=== PATIENT | female | born 1950 | race African-American/Black ===

== ENCOUNTER 2023-05-09 14:07 | Emergency (ER) | payer OTHER, MEDICARE ==
[2023-05-09 14:16] VITALS: BP 114/64; PULSE 110; RESP 18; TEMP 97.6; BMI 36.6
[2023-05-09 16:23] LABS: BASO % 0.9 % (0-2.0); EOS % 2.2 % (0-4.5); HEMATOCRIT 38.8 % (32.4-45.2); HEMOGLOBIN 12.8 GM/dL (10.7-15.3); LYMPH % 28.4 % (8-40); MCH 29.7 pg (25.7-33.7); MEAN PLT VOLUME 6.7 fl (7.5-11.1); MONO % 7.5 % (3.8-10.2); PLATELET COUNT 416 10^3/uL (134-434); RBC 4.31 M/mm3 (3.60-5.2); WHITE BLOOD COUNT 7.6 K/mm3 (4.0-10.0)
[2023-05-09 16:43] LABS: POTASSIUM 3.9 mmol/L (3.5-5.1)
[2023-05-09 16:48] LABS: CALCIUM 10.1 mg/dL (8.5-10.1)
[2023-05-09 16:49] LABS: ALBUMIN 4.1 g/dl (3.4-5.0); BLOOD UREA NITROGEN 15.9 mg/dL (7-18); MAGNESIUM 2.3 mg/dL (1.8-2.4)
[2023-05-09 16:52] LABS: CREATININE 1.1 mg/dL (0.55-1.3)
[2023-05-09 16:54] LABS: BILIRUBIN,TOTAL 0.6 mg/dL (0.2-1); TOT PROT 8.1 g/dl (6.4-8.2)
== END 2023-05-09 18:00 | disposition home or self-care (01) ==
LOC: JER 14:07
DX: R20.0 Anesthesia of skin (principal); R20.2 Paresthesia of skin; R25.3 Fasciculation
CPT/HCPCS: 36415; 80053; 83735; 85025; 93005; 93010; 99284-25